=== PATIENT | female | born 1940 | race Caucasian/White ===

== ENCOUNTER 2018-09-11 19:29 | Inpatient (IN) ==
[2018-09-11] MEDS ORDERED: DILTIAZEM 25 MG/5 ML VIAL IV ONE (19:49)
[2018-09-11] MEDS ORDERED: ACETAMINOPHEN 325 MG TABLET PO ONE (19:50)
[2018-09-11] MEDS ORDERED: 0.9 % SODIUM CHLORIDE 1,000 ML IV SCH (20:00)
[2018-09-11 20:07] LABS: Basophils # (Auto) 0.1 K/mcL (0.0-0.3); Basophils % (Auto) 0.7 % (0.0-2.0); Eosinophils # (Auto) 0.1 K/mcL (0.0-0.7); Eosinophils % (Auto) 1.1 % (0.0-7.0); Granulocytes % (Auto) 76.5 % (38.0-78.0); Lymphocytes # (Auto) 1.2 K/mcL (1.5-4.8); Lymphocytes % (Auto) 14.4 % (15.5-49.0); Mean Cell Volume 88.1 fL (80.0-100.0); Mean Corpuscular HGB Conc 33.1 g/dL (31.0-36.0); Monocytes # (Auto) 0.6 K/mcL (0.1-0.9); Monocytes % (Auto) 7.3 % (1.0-12.0); Platelet Count 189 K/mcL (140-440); RBC 4.53 M/mcL (4.00-5.20); Red Cell Distribution Width 13.9 % (11.5-14.5)
[2018-09-11 20:26] LABS: ALT/SGPT 11 U/l (0-40); Albumin 3.9 gm/dL (3.2-5.2); Albumin/Globulin Ratio 1.3 (1.0-2.3); Alkaline Phosphatase 69 U/L (39-117); Blood Urea Nitrogen 17 mg/dl (8-23)
[2018-09-11] MEDS ORDERED: FUROSEMIDE 40 MG/4 ML VIAL IV ONE (20:39)
[2018-09-11] MEDS ORDERED: IBUPROFEN 600 MG TABLET PO ONE (20:48)
--- NOTE | 2018-09-11 20:52 | Emergency Department Note ---
SOB HPI - General Chief Complaint: Shortness of Breath/Dyspnea Stated Complaint: Shortness of breath Time Seen by Provider: 09/11/18 19:36 Source: patient Mode of arrival: ambulatory Limitations: no limitations - History of Present Illness 78-year-old female presents with shortness of breath. She was here the night before last with the same. States she really never got any better so she decided to come in [facility]. Has had labored breathing for the last couple of days minimum she states. Positive fever and chills. Has felt hot but has not taken her temperature. Does have a nonproductive cough. No nausea, vomiting, or diarrhea. Does have a history of A. fib and feels like her heart rate is fast. She also has a history of CHF and was given Lasix and potassium the other night when she was here. No sore throat or ear pain. No nausea, vomiting, or diarrhea. Is not on any home oxygen. No home treatments. Associated symptoms: Reports: fever, cough, orthopnea, palpitations. Denies: chest pain, pain with inspiration, lower extremity pain, diaphoresis, nausea/vomiting, syncope, abdominal pain, rash - Related Data Home Medications Medication Instructions Recorded Confirmed metoprolol tartrate 25 mg tablet 25 mg PO BID 07/01/15 09/11/18 aspirin 325 mg tablet See Rx Instructions PO QDAY 06/08/17 09/11/18 Previous Rx's Medication Instructions Recorded albuterol sulfate HFA 90 90 mcg INHALATION Q4H PRN #18 g 07/05/15 mcg/actuation aerosol inhaler nebulizer and compressor See Dose Instructions .ROUTE 02/24/16 .MEDSUPPLY #1 each ipratropium bromide 0.02 % 2.5 ml INHALATION Q6H PRN #150 ml 11/29/17 solution for inhalation Apixaban [Eliquis] 2.5 mg PO BID #60 tab 09/09/18 Diltiazem HCl [Diltiazem 24Hr Cd] 120 mg PO DAILY #30 cap.er.24h 09/09/18 Triamterene/Hydrochlorothiazid 1 each PO QDP PRN #30 tab 09/09/18 [Triamterene-Hctz 37.5-25 mg Tb] Allergies Allergy/AdvReac Type Severity Reaction Status Date / Time No Known Drug Allergies Allergy Verified 09/09/18 16:47 Review of Systems All systems ED: reviewed and negative except as stated. Past Medical History - Past Medical History [facility] Narrative: Medical History (Last Updated 09/09/18 @ 17:13 by Washington Trimble DO) COPD (chronic obstructive pulmonary disease) (Chronic) Osteoporosis (Chronic) Mitral valve regurgitation (Chronic) Menopausal state (Chronic) Hyperlipemia (Chronic) Colonic polyp (Chronic) CVA (cerebral vascular accident) (Chronic) Breast cancer (Chronic) Wrist fracture, closed (Resolved) Past Surgical History (Last Updated 09/09/18 @ 17:14 by Washington Trimble DO) S/P atrial septal defect closure (Chronic) History of modified radical mastectomy of left breast (Resolved) Hx of cardiac catheterization (Resolved) Hx of detached retina repair (Resolved) Medical history: Reports: atrial fibrillation, CHF. Denies: coronary artery disease, hypertension, myocardial infarction - Social History smoking status: Former smoker Alcohol use: Reports: None Drug use: Reports: none Physical Exam Limitations: no limitations General appearance: alert, other (Labored breathing in mild distress on arrival) Head: atraumatic, normocephalic, normal inspection Eye: Present: normal appearance. Absent: conjunctival injection ENT: normal exam, normal oropharynx, mucous membranes moist, TM's normal bilaterally, normal external ear exam Neck: Present: normal inspection, trachea midline. Absent: tenderness, lymphadenopathy Chest: Present: symmetric chest wall rise Respiratory: Present: respiratory distress (Mild), wheezes (Expiratory wheezes to the bases bilaterally and diminished at the bases bilaterally), accessory muscle use (Accessory muscle use and tachypnea on arrival). Absent: stridor Cardiovascular: Present: tachycardia, irregular rhythm, other (A. fib in the 120s 130s on arrival) Abdominal: Present: normal bowel sounds Neurological: Present: alert, oriented X3 Psychiatric: Present: normal affect, normal mood Skin: Present: warm, dry, intact, normal color Course Course Narrative: At [address] did speak with Dr[address] Lynne, the hospitalist who agrees to admit this patient. Vital Signs Temperature 99.1 F H 09/11/18 19:30 Pulse Rate 126 H 09/11/18 19:30 Blood Pressure 156/88 09/11/18 19:30 Pulse Oximetry (%) 94 09/11/18 19:30 Temperature 98.0 F 09/11/18 21:30 Pulse Rate 121 H 09/11/18 21:09 Respiratory Rate 30 H 09/11/18 21:09 Blood Pressure 107/59 09/11/18 21:01 Pulse Oximetry (%) 92 09/11/18 21:09 Shortness of Breath/Dyspnea - Lab Data Lab results reviewed: Yes I reviewed the patient's lab results. Result diagrams: 09/11/18 19:40 09/11/18 19:40 Lab Results 09/11/18 09/11/18 09/11/18 Range/Units 19:37 19:40 19:40 WBC 8.1 (4.5-11.0) K/mcL RBC 4.53 (4.00-5.20) M/mcL Hgb 13.2 (12.0-15.0) g/dL Hct 39.9 (36.0-48.0) % MCV 88.1 (80.0-100.0) fL MCH 29.2 (26.0-34.0) pg MCHC 33.1 (31.0-36.0) g/dL RDW 13.9 (11.5-14.5) % Plt Count 189 (140-440) K/mcL MPV 8.8 (7.4-10.4) fL Gran % 76.5 (38.0-78.0) % Lymph % (Auto) 14.4 L (15.5-49.0) % [place] % (Auto) 7.3 (1.0-12.0) % Eos % (Auto) 1.1 (0.0-7.0) % Baso % (Auto) 0.7 (0.0-2.0) % Gran # 6.2 (1.8-8.0) K/mcL Lymph # (Auto) 1.2 L (1.5-4.8) K/mcL [place] # (Auto) 0.6 (0.1-0.9) K/mcL Eos # (Auto) 0.1 (0.0-0.7) K/mcL Baso # (Auto) 0.1 (0.0-0.3) K/mcL VBG Lactic Acid (0.5-2.0) mmol/L Sodium 140 (133-145) mmol/L Potassium 4.4 (3.3-5.1) mmol/L Chloride 101 (96-108) mmol/L Carbon Dioxide 25 (22-30) mmol/L Anion Gap 14.0 (8-16) BUN 17 (8-23) mg/dl Creatinine 0.9 (0.6-1.1) mg/dl GFR Calculation 62 Glucose 135 H (70-105) mg/dL Calcium 9.2 (8.6-10.4) mg/dl Total Bilirubin 0.8 (0.0-1.0) mg/dL AST 25 (0-37) U/l ALT 11 (0-40) U/l Alkaline Phosphatase 69 (39-117) U/L NT-Pro-B Natriuret Pep 1913.0 H (0-450) pg/ml Total Protein 6.9 (5.9-8.4) gm/dL Albumin 3.9 (3.2-5.2) gm/dL Globulin 3.0 (2.2-3.7) gm/dL Albumin/Globulin Ratio 1.3 (1.0-2.3) 09/11/18 Range/Units 20:00 WBC (4.5-11.0) K/mcL RBC (4.00-5.20) M/mcL Hgb (12.0-15.0) g/dL Hct (36.0-48.0) % MCV (80.0-100.0) fL MCH (26.0-34.0) pg MCHC (31.0-36.0) g/dL RDW (11.5-14.5) % Plt Count (140-440) K/mcL MPV (7.4-10.4) fL Gran % (38.0-78.0) % Lymph % (Auto) (15.5-49.0) % [place] % (Auto) (1.0-12.0) % Eos % (Auto) (0.0-7.0) % Baso % (Auto) (0.0-2.0) % Gran # (1.8-8.0) K/mcL Lymph # (Auto) (1.5-4.8) K/mcL [place] # (Auto) (0.1-0.9) K/mcL Eos # (Auto) (0.0-0.7) K/mcL Baso # (Auto) (0.0-0.3) K/mcL VBG Lactic Acid 1.5 (0.5-2.0) mmol/L Sodium (133-145) mmol/L Potassium (3.3-5.1) mmol/L Chloride (96-108) mmol/L Carbon Dioxide (22-30) mmol/L Anion Gap (8-16) BUN (8-23) mg/dl Creatinine (0.6-1.1) mg/dl GFR Calculation Glucose (70-105) mg/dL Calcium (8.6-10.4) mg/dl Total Bilirubin (0.0-1.0) mg/dL AST (0-37) U/l ALT (0-40) U/l Alkaline Phosphatase (39-117) U/L NT-Pro-B Natriuret Pep (0-450) pg/ml Total Protein (5.9-8.4) gm/dL Albumin (3.2-5.2) gm/dL Globulin (2.2-3.7) gm/dL Albumin/Globulin Ratio (1.0-2.3) - Radiology Data Radiology results reviewed: Yes I reviewed the patient's radiology results. - EKG Data EKG attestation: Yes I reviewed and interpreted this EKG. Disposition Pt seen by AUTOMOTIVE DESIGN DRAFTER/PA only: No Clinical Impression: Pneumonia, Atrial fibrillation, SOB (shortness of breath) Disposition: Xfer As Inpt ([facility]) Condition: Fair Referrals: Jeff Byrd MD [Primary Care Provider] - Time of Disposition: 21:40
[2018-09-11] MEDS ORDERED: DILTIAZEM 125 MG in DEXTROSE 5% IN WATER 100 ML IV SCH (21:00)
[2018-09-11] MEDS ORDERED: LEVOFLOXACIN 500 MG/100 ML BAG IV ONE (21:36)
--- NOTE | 2018-09-11 22:27 | Internal Med History&Physical ---
Medical - H&P: HPI Patient information: Note initiated : 09/11/18 at 10:22 pm Service Date, if different from initiated Date: [] Patient: Varsha Barney a 78 y/o F admitted on for Shortness of breath. Chief Complaint: [] History of present illness: Ms. Barney is a 78 year old F with history of COPD, atrial fibrillation presents to the emergency room for evaluation of shortness of breath. The patient notes she has been short of breath for the last 1 week, she has found it is more difficult to carry out her usual activities. She is also had some intermittent palpitations. The patient was seen in the clinic on Sunday, was noted to be in A. fib RVR and possible CHF and therefore was sent to the em ergency room. The patient was treated in the emergency room, according to the patient 6 L of fluid removed, and she was given a new prescription of medications and asked to follow-up with the PCP. The next morning the patient was feeling somewhat better however her condition worsened again she became more short of breath even with minimal activity and she therefore presented back to the emergency room for further evaluation. The patient notes she had very mild burning when she pees, cough which is dry, fever that has been going on since today, fever associated with chills, the patient denies any nausea vomiting diarrhea constipation, admits to some easy bruising but no other acute complai nts or concerns. In the emergency room patient on presentation had a low-grade temperature but a T-max of 101.1, tachycardic heart rate in 110-130 blood pressure 107/59, respiratory rate 25-30, saturating 92% on room air. Chest x-ray shows cardiomegaly possible right basilar pneumonia versus atelect asis EKG shows atrial fibrillation with RVR incomplete RBBB LAFB nonspecific ST-T wave changes in the lateral leads Labs show normal WBC count at 8.1 hemoglobin 13.2 platelets 189 BNP 1913 which is an improvement over 2 days ago when it was 3179 sodium is 140 potassium 4.4 bicarbonate 25 creatinine 0.9 TSH done 2 days ago was normal lactic acid 1.5. ABG was done which shows pH of 7.47 PCO2 36 PO2 63 on room air On exam the patient also had wheezing, the patient for her A. fib was placed on a Cardizem drip, levofloxacin was given blood cultures were sent before antibiotics I presume, IV fluids was also given along with Lasix. Patient is being admitted to the hospital for further management Given that the patient has COPD exacerbation CHF exacerbation A. fib with RVR and fever I will admit the patient to PCU status All systems: reviewed and no additional remarkable complaints except as stated (As per HPI is negative) Medical - H&P: PMH Medical history: Medical History (Last Updated 09/09/18 @ 17:13 by Washington Trimble DO) COPD (chronic obstructive pulmonary disease) (Chronic) Osteoporosis (Chronic) Mitral valve regurgitation (Chronic) Menopausal state (Chronic) Hyperlipemia (Chronic) Colonic polyp (Chronic) CVA (cerebral vascular accident) (Chronic) Breast cancer (Chronic) Wrist fracture, closed (Resolved) Surgical history: Past Surgical History (Last Updated 09/09/18 @ 17:14 by Washington Trimble DO) S/P atrial septal defect closure (Chronic) History of modified radical mastectomy of left breast (Resolved) Hx of cardiac catheterization (Resolved) Hx of detached retina repair (Resolved) Pertinent family history: Family History mother Malignant neoplasm of breast father Essential hypertension Cerebrovascular accident (CVA) none listed Malignant neoplasm Neurological disorder Rheumatoid arthritis Medical - H&P: Meds Home Medications Medication Instructions Recorded Confirmed Type metoprolol tartrate 25 mg tablet 25 mg PO BID 07/01/15 09/11/18 History albuterol sulfate HFA 90 90 mcg INHALATION Q4H PRN #18 g 07/05/15 09/11/18 Rx mcg/actuation aerosol inhaler nebulizer and compressor See Dose Instructions .ROUTE 02/24/16 09/09/18 Rx .MEDSUPPLY #1 each aspirin 325 mg tablet See Rx Instructions PO QDAY 06/08/17 09/11/18 History ipratropium bromide 0.02 % 2.5 ml INHALATION Q6H PRN #150 ml 11/29/17 09/11/18 Rx solution for inhalation Apixaban [Eliquis] 2.5 mg PO BID #60 tab 09/09/18 09/11/18 Rx Diltiazem HCl [Diltiazem 24Hr Cd] 120 mg PO DAILY #30 cap.er.24h 09/09/18 09/11/18 Rx Triamterene/Hydrochlorothiazid 1 each PO QDP PRN #30 tab 09/09/18 09/11/18 Rx [Triamterene-Hctz 37.5-25 mg Tb] Allergies Allergy/AdvReac Type Severity Reaction Status Date / Time No Known Drug Allergies Allergy Verified 09/09/18 16:47 Medical - H&P: Exam - Constitutional Vitals: Temp Pulse Resp BP Pulse Ox 98.0 F 130 H 29 H 113/79 93 09/11/18 21:30 09/11/18 22:09 09/11/18 22:09 09/11/18 22:01 09/11/18 22:09 Exam: GENERAL: The patient is a well-developed, well-nourished in no apparent distress. Is alert and oriented x3. VITAL SIGNS: Reviewed and as noted elsewhere. HEENT: Head is normocephalic and atraumatic. Extraocular muscles are intact. Pupils are equal, round, and reactive to light. Nares appeared normal. Mouth appears any without lesions. Mucous membranes are moist. NECK: Normal to inspection, Supple, No lymphadenopathy or thyromegaly. LUNGS: Air entry equal on both sides, poor air entry, briana exp wheezing noted. Pt tachypenic, HEART: irregulr tachycardic rate, s1 and S2 heard, no Gallop, S3 or Rub Noted, systolic mitral mumur . ABDOMEN: Soft, nontender, and nondistended. Positive bowel sounds. No hepatosplenomegaly was noted. EXTREMITIES: No cyanosis, clubbing, rash, lesions, edema ++ present NEUROLOGIC: Cranial nerves II through XII are grossly intact. Motor and Sensory System Grossly Intact PSYCHIATRIC: Normal affect, Normal Mood. Appropriate Behavior. SKIN: No ulceration or wounds noted, No jaundice, No rash noted. Medical - H&P: Reslt - Labs CBC & Chem 7: 09/11/18 19:40 09/11/18 19:40 Labs: Short CBC 09/11/18 Range/Units 19:40 WBC 8.1 (4.5-11.0) K/mcL Hgb 13.2 (12.0-15.0) g/dL Hct 39.9 (36.0-48.0) % Plt Count 189 (140-440) K/mcL BMP 09/11/18 19:40 Sodium 140 Potassium 4.4 Chloride 101 Carbon Dioxide 25 BUN 17 Creatinine 0.9 Glucose 135 H Calcium 9.2 Liver Function 09/11/18 Range/Units 19:40 Total Bilirubin 0.8 (0.0-1.0) mg/dL AST 25 (0-37) U/l ALT 11 (0-40) U/l Alkaline Phosphatase 69 (39-117) U/L Albumin 3.9 (3.2-5.2) gm/dL Medical - H&P: A/P - Narrative A/P Narrative: A/P Atrial fibrillation with RVR Acute systolic congestive heart failure Viral fever Pneumonia Acute exacerbation of COPD History of breast cancer History of CVA Hyperlipidemia Plan Admit to PCU status Continue Cardizem GGT to control heart rate, Lasix 40 mg twice a day, monitor urine output IV levofloxacin for now Patient's chest x-ray is atelectasis versus pneumonia, patient does have fever but there is no white count, continue IV levofloxacin for now, await pro- calcitonin level, if blood cultures are negative will de-escalate antibiotics UA has been sent patient's recent urine culture has been negative Patient is on Eliquis 2.5 mg twice a day started day before yesterday continue same for now continue to hold aspirin Continue metoprolol and Cardizem for rate control Get an echocardiogram Resume home medications as appropriate Cardiac diet DNR CODE STATUS Social History - Social History marital status: education level: high school occupational status: retired occupation: retired car dryer - Tobacco smoking status: Former smoker - Alcohol alcohol intake frequency: holiday/special occasion only
[2018-09-11 22:56] LABS: Appearance,Urine CLEAR; Bacteria,Urine 0 /hpf (0); Bilirubin,Urine NEG (NEG); Color,Urine STRAW; Glucose,Urine (UA) NEGATIVE (NEG); Leukocyte Esterase,Urine 250 /uL (NEG); Mucus,Urine FEW /hpf (0); Protein,Urine NEG (NEG); Specific Gravity,Urine 1.006 (1.000-1.035); Urine Blood 0.03 mg/dL (<0.03); Urine Hyaline Cast 2 /lpf (0-2); Urine RBC 5 /hpf (0-1); Urine Squamous Epithelial Cell 1 /hpf (0-4); Urine WBC 21 /hpf (0-4); Urobilinogen,Urine NEG (NEG)
[2018-09-11] MEDS ORDERED: NALOXONE HCL 0.4 MG/ML VIAL IV PRN (23:14)
[2018-09-11] MEDS ORDERED: ONDANSETRON 4 MG/2 ML VIAL IV PRN (23:14)
[2018-09-11] MEDS ORDERED: methylPREDNISolone SOD SUCC 40 MG/ML VIAL IV ONE (23:14)
[2018-09-11] MEDS ORDERED: ACETAMINOPHEN 325 MG TABLET PO PRN (23:14)
[2018-09-11] MEDS ORDERED: methylPREDNISolone SOD SUCC 125 MG/2 ML VIAL ONE (23:30)
[2018-09-11] MEDS ORDERED: IPRATROPIUM/ALBUTEROL 3 ML AMPUL.NEB NEB ONE (23:41)
[2018-09-11] MEDS: IPRATROPIUM/ALBUTEROL 3 ML AMPUL.NEB NEB SCH (23:51)
[2018-09-12] MEDS: IPRATROPIUM/ALBUTEROL 3 ML AMPUL.NEB NEB SCH ×6 (04:26→22:40)
[2018-09-12] MEDS ORDERED: 0.9 % SODIUM CHLORIDE 10 ML SYRINGE IV SCH (06:00)
--- NOTE | 2018-09-12 06:22 | XRay Report ---
CLINICAL INFORMATION: dyspnea COMPARISON: 09/09/2018 FINDINGS: Moderate cardiomegaly is unchanged. Pulmonary vessels have returned to normal in caliber and interstitial edema has nearly resolved. A small infiltrate or atelectasis has progressed in the right base. Moderate underlying COPD changes noted. No effusions IMPRESSION: 1. Interval resolution in atypical CHF 2. Small infiltrate or atelectasis progressing in the right base 3. Moderate COPD Interpreted and Authenticated by: Jacobo Carpenter 09/12/18
[2018-09-12 07:06] LABS: Basophils # (Auto) 0 K/mcL (0.0-0.3); Basophils % (Auto) 0.2 % (0.0-2.0); Eosinophils # (Auto) 0 K/mcL (0.0-0.7); Eosinophils % (Auto) 0.1 % (0.0-7.0); Granulocytes % (Auto) 89.4 % (38.0-78.0); Lymphocytes # (Auto) 0.5 K/mcL (1.5-4.8); Lymphocytes % (Auto) 6.5 % (15.5-49.0); Mean Cell Volume 88.9 fL (80.0-100.0); Mean Corpuscular HGB Conc 33.5 g/dL (31.0-36.0); Monocytes # (Auto) 0.3 K/mcL (0.1-0.9); Monocytes % (Auto) 3.8 % (1.0-12.0); Platelet Count 177 K/mcL (140-440); RBC 4.27 M/mcL (4.00-5.20); Red Cell Distribution Width 14.1 % (11.5-14.5)
--- NOTE | 2018-09-12 07:41 | Emergency Department Note ---
ED Note Addendum Note Addendum: I discussed this case with the mid-level provider and agree with the assessment and plan.
[2018-09-12 07:47] LABS: ALT/SGPT 11 U/l (0-40); Albumin 3.7 gm/dL (3.2-5.2); Albumin/Globulin Ratio 1.2 (1.0-2.3); Alkaline Phosphatase 65 U/L (39-117); Bilirubin,Direct 0.2 mg/dL (0.0-0.3); Blood Urea Nitrogen 15 mg/dl (8-23); Gamma Glutamyl Transpeptidase 20 U/L (5-36); Uric Acid 5.9 mg/dL (2.5-8.0)
[2018-09-12] MEDS ORDERED: predniSONE 20 MG TABLET PO SCH (08:00)
[2018-09-12] MEDS ORDERED: FUROSEMIDE 40 MG/4 ML VIAL IV SCH (08:00)
[2018-09-12] MEDS ORDERED: DILTIAZEM 125 MG in DEXTROSE 5% IN WATER 100 ML IV SCH (09:00)
[2018-09-12] MEDS ORDERED: LINEZOLID 600 MG TABLET PO SCH (09:00)
[2018-09-12] MEDS ORDERED: DILTIAZEM 120 MG CAP.XL.24H PO SCH (09:00)
[2018-09-12] MEDS ORDERED: METOPROLOL TARTRATE 25 MG TABLET PO SCH ×2 (09:00→21:00)
[2018-09-12] MEDS ORDERED: APIXABAN 2.5 MG TABLET PO SCH (09:00)
[2018-09-12] MEDS ORDERED: FAMOTIDINE/PF 20 MG/2 ML VIAL IV SCH (09:00)
[2018-09-12] MEDS ORDERED: OSELTAMIVIR PHOSPHATE 75 MG CAPSULE PO SCH (09:00)
[2018-09-12] MEDS ORDERED: ACETAMINOPHEN 325 MG TABLET PO PRN (10:08)
[2018-09-12] MEDS ORDERED: NALOXONE HCL 0.4 MG/ML VIAL IV PRN (10:08)
[2018-09-12] MEDS ORDERED: ONDANSETRON 4 MG/2 ML VIAL IV PRN (10:08)
--- NOTE | 2018-09-12 13:16 | Internal Med Progress Note ---
Medical - PN: Subj Patient information: Note initiated : 09/12/18 at 1:13 pm Service Date, if different from initiated Date: [] Patient: Varsha Barney a 78 y/o F admitted on 09/11/18 for Shortness of breath. Chief Complaint: [] Interval history: Ms. Barney is a 78 year old F with history of COPD, atrial fibrillation presents to the emergency room for evaluation of shortness of breath. The patient notes she has been short of breath for the last 1 week, she has found it is more difficult to carry out her usual activities. She is also had some intermittent palpitations. The patient was seen in the clinic on Sunday, was noted to be in A. fib RVR and possible CHF and therefore was sent to the emerg ency room. The patient was treated in the emergency room, according to the patient 6 L of fluid removed, and she was given a new prescription of medications and asked to follow-up with the PCP. The next morning the patient was feeling somewhat better however her condition worsened again she became more short of breath even with minimal activity and she therefore presented back to the emergency room for further evaluation. The patient notes she had very mild burning when she pees, cough which is dry, fever that has been going on since today, fever associated with chills, the patient denies any nausea vomiting diarrhea constipation, admits to some easy bruising but no other acute complaints or concerns. In the emergency room patient on presentation had a low-grade temperature but a T-max of 101.1, tachycardic heart rate in 110-130 blood pressure 107/59, respiratory rate 25-30, saturating 92% on room air. Chest x-ray shows cardiomegaly possible right basilar pneumonia versus atelectasis EKG shows atrial fibrillation with RVR incomplete RBBB LAFB nonspecific ST-T wave changes in the lateral leads Labs show normal WBC count at 8.1 hemoglobin 13.2 platelets 189 BNP 1913 which is an improvement over 2 days ago when it was 3179 sodium is 140 potassium 4.4 bicarbonate 25 creatinine 0.9 TSH done 2 days ago was normal lactic acid 1.5. ABG was done which shows pH of 7.47 PCO2 36 PO2 63 on room air On exam the patient also had wheezing, the patient for her A. fib was placed on a Cardizem drip, levofloxacin was given blood cultures were sent before antibiotics I presume, IV fluids was also given along with Lasix. Patient is being admitted to the hospital for further management Given that the patient has COPD exacerbation CHF exacerbation A. fib with RVR and fever I will admit the patient to PCU status 09/12 patient seen examined, no acute overnight events Patient tested positive for influenza Cardizem drip has been off since yesterday Patient appears hemodynamically stable. Patient is responding well to diuresis Echo pending patient wishes to go home Transfer to telemetry status Pertinent ROS: Denies headache, dizziness Denies chest pain, palpitations Cough and shortness of breath improving Denies abdominal pain, nausea or vomiting. - Constitutional Vitals: Vital Signs Temp Pulse Resp BP Pulse Ox 99.7 F H 60 22 94/57 94 09/12/18 11:00 09/12/18 10:02 09/12/18 11:00 09/12/18 11:00 09/12/18 11:00 Period Temp Pulse Resp BP Sys/Wallace Pulse Ox Last 24 Hr 98.0 F-101.1 F 60-146 18-36 74-156/53-94 92-97 Intake and Output 09/11/18 09/12/18 09/12/18 21:59 05:59 13:59 Intake Total 802 / 1007 205 / 1007 353 / 353 Output Total 1100 / 1100 450 / 450 Balance 802 / -93 -895 / -93 -97 / -97 Weight 144 lb 143 lb Intake & Output: Intake & Output 09/11/18 09/12/18 09/12/18 21:59 05:59 13:59 Intake Total 802 / 1007 205 / 1007 353 / 353 Output Total 1100 / 1100 450 / 450 Balance 802 / -93 -895 / -93 -97 / -97 Weight 144 lb 143 lb Intake: IV 802 / 947 145 / 947 53 / 53 Sodium Chloride 0.9% 1,000 ml @ 800 / 800 150 mls/hr IV .Q6H40M [facility] Rx#: [id number] Cardizem 125 mg In Dextrose 5% 2 / 47 45 / 47 in Water 100 ml @ 5 MG/HR 5 mls /hr IV Q12H [facility] Rx#:[id number] Oral 60 / 60 300 / 300 Output: Void Amount 1100 / 1100 450 / 450 Other: Meal Breakfast Percent of Meal Consumed 100% Feeding Ability Independent Urine Appearance Clear Clear Urine Color Bright Yellow Light Olive Urine Odor Normal Normal Exam: Constitutional; Afebrile, cooperative, alert, not in distress. Eyes- No icterus, , No periorbital swelling Ears- Ext ear normal, hearing normal to conversation. Neck- Midline trachea, supple Respiratory system: Improved air entry on both sides, improved crackles bilaterally CVS- Rate rhythm irregular , S1,S2 heard, no gallop, no rub. Abdomen- Soft nontender abdomen, no organomegaly, no tenderness, no guarding or rigidity, BIBLE READER- AOOx3, moving all extremities, no gross focal deficit noted. Medical - PN: Obj Da - Labs CBC & Chem 7: 09/12/18 03:35 09/12/18 03:35 Labs: Abnormal Lab Results 09/12/18 09/12/18 09/11/18 03:35 03:35 22:15 Gran % 89.4 H Lymph % (Auto) 6.5 L Lymph # (Auto) 0.5 L Glucose 140 H Phosphorus 2.6 L Total Bilirubin 1.1 H Lactate Dehydrogenase 255 H NT-Pro-B Natriuret Pep Urine Occult Blood 0.03 A Ur Leukocyte Esterase 250 A Urine RBC 5 H Urine WBC 21 H 09/11/18 09/11/18 09/11/18 19:40 19:40 19:37 Gran % Lymph % (Auto) 14.4 L Lymph # (Auto) 1.2 L Glucose 135 H Phosphorus Total Bilirubin Lactate Dehydrogenase NT-Pro-B Natriuret Pep 1913.0 H Urine Occult Blood Ur Leukocyte Esterase Urine RBC Urine WBC Meds: Medications Acetaminophen (Tylenol) 650 mg PO Q4-6HP PRN PRN Reason: PAIN/FEVER > 101 Albuterol/Ipratropium (Duoneb) 3 ml NEB Q4HRT [facility] Last Admin: 09/12/18 11:52 Dose: Not Given Documented by: Apixaban (Eliquis) 2.5 mg PO BID [facility] Diltiazem HCl (Cardizem Cd) 120 mg PO DAILY [facility] Famotidine (Pepcid) 20 mg IV Q12 [facility] Furosemide (Lasix) 40 mg IV BIDD [facility] Diltiazem HCl 125 mg/ Dextrose 125 mls @ 5 mls/hr IV Q12HP PRN; Protocol PRN Reason: TITRATE TO KEEP HR <100,SBP>90 Levofloxacin (Levaquin) 750 mg in 150 mls @ 100 mls/hr IV DAILY [facility] Linezolid (Zyvox) 600 mg PO Q12 [facility] Metoprolol Tartrate (Lopressor) 25 mg PO BID [facility] Naloxone HCl (Narcan) 0.1 mg IV Q2MIN PRN PRN Reason: Opiate Reversal Ondansetron HCl (Zofran) 4 mg IV Q4-6HP PRN PRN Reason: Nausea And Vomiting Oseltamivir Phosphate (Tamiflu) 75 mg PO BID [facility] Prednisone (Prednisone) 40 mg PO [facility] Stop: 09/15/18 07:59 Sodium Chloride (Saline Flush) 10 ml IV Q8 [facility] Medical - PN: A/P - Time Spent With Patient Total time spent is greater than 50% in coordination of care (as documented) at patient's floor/unit and/or counseling patient: - Narrative A/P Narrative: A/P Atrial fibrillation with RVR Acute systolic congestive heart failure Influenza type a Pneumonia Acute exacerbation of COPD History of breast cancer History of CVA Hyperlipidemia Plan Transfer to telemetry status Of [facility] [place] GGT continue to monitor heart rate oral medications for rate control resume, Lasix 40 mg twice a day, monitor urine output IV levofloxacin for now, Zyvox added given influenza is positive, Will discontinue antibiotics at 48 hours if cultures remain negative MRSA screen is negative UA has been sent patient's recent urine culture has been negative Patient is on Eliquis 2.5 mg twice a day started day before yesterday continue same for now continue to hold aspirin Await echo Patient started on Tamiflu Cardiac diet DNR CODE STATUS Medical - PN: Qual - VTE Deep Vein Thrombosis/Pulmonary Embolism Present on Admission: No
[2018-09-12] MEDS ORDERED: LEVOFLOXACIN 750 MG/150 ML BAG IV SCH (14:00)
[2018-09-12] MEDS: LEVOFLOXACIN 750 MG/150 ML BAG IV SCH (14:14)
[2018-09-12] MEDS: FUROSEMIDE 40 MG/4 ML VIAL IV SCH (15:24)
[2018-09-12] MEDS: 0.9 % SODIUM CHLORIDE 10 ML SYRINGE IV SCH ×2 (15:24→20:18)
[2018-09-12] MEDS: METOPROLOL TARTRATE 5 MG/5 ML VIAL IV SCH ×3 (15:59→16:50)
[2018-09-12] MEDS: LINEZOLID 600 MG TABLET PO SCH (20:17)
[2018-09-12] MEDS: APIXABAN 2.5 MG TABLET PO SCH (20:17)
[2018-09-12] MEDS: OSELTAMIVIR PHOSPHATE 75 MG CAPSULE PO SCH (20:17)
[2018-09-12] MEDS: FAMOTIDINE/PF 20 MG/2 ML VIAL IV SCH (20:17)
[2018-09-12] MEDS: METOPROLOL TARTRATE 25 MG TABLET PO SCH (20:17)
[2018-09-12] MEDS ORDERED: DILTIAZEM 125 MG in DEXTROSE 5% IN WATER 100 ML IV PRN (21:00)
[2018-09-13] MEDS: IPRATROPIUM/ALBUTEROL 3 ML AMPUL.NEB NEB SCH ×3 (03:45→10:19)
[2018-09-13] MEDS: 0.9 % SODIUM CHLORIDE 10 ML SYRINGE IV SCH ×2 (05:25→08:21)
[2018-09-13 05:58] LABS: Basophils # (Auto) 0 K/mcL (0.0-0.3); Basophils % (Auto) 0.2 % (0.0-2.0); Eosinophils # (Auto) 0 K/mcL (0.0-0.7); Eosinophils % (Auto) 0 % (0.0-7.0); Granulocytes % (Auto) 65.4 % (38.0-78.0); Lymphocytes # (Auto) 0.8 K/mcL (1.5-4.8); Lymphocytes % (Auto) 15.6 % (15.5-49.0); Mean Cell Volume 88.4 fL (80.0-100.0); Mean Corpuscular HGB Conc 33.7 g/dL (31.0-36.0); Monocytes % (Auto) 18.8 % (1.0-12.0); Platelet Count 172 K/mcL (140-440); RBC 3.98 M/mcL (4.00-5.20); Red Cell Distribution Width 13.9 % (11.5-14.5)
[2018-09-13 06:30] LABS: ALT/SGPT 11 U/l (0-40); Albumin 3.5 gm/dL (3.2-5.2); Albumin/Globulin Ratio 1.3 (1.0-2.3); Alkaline Phosphatase 56 U/L (39-117); Bilirubin,Direct < 0.2 mg/dL (0.0-0.3); Blood Urea Nitrogen 23 mg/dl (8-23); Gamma Glutamyl Transpeptidase 17 U/L (5-36)
[2018-09-13] MEDS ORDERED: predniSONE 20 MG TABLET PO SCH (08:00)
[2018-09-13] MEDS: OSELTAMIVIR PHOSPHATE 75 MG CAPSULE PO SCH (08:21)
[2018-09-13] MEDS: FAMOTIDINE/PF 20 MG/2 ML VIAL IV SCH (08:21)
[2018-09-13] MEDS: METOPROLOL TARTRATE 25 MG TABLET PO SCH (08:21)
[2018-09-13] MEDS: FUROSEMIDE 40 MG/4 ML VIAL IV SCH (08:21)
[2018-09-13] MEDS: LINEZOLID 600 MG TABLET PO SCH (08:21)
[2018-09-13] MEDS: APIXABAN 2.5 MG TABLET PO SCH (08:22)
[2018-09-13] MEDS: LEVOFLOXACIN 750 MG/150 ML BAG IV SCH (08:23)
[2018-09-13] MEDS ORDERED: DILTIAZEM 120 MG CAP.XL.24H PO SCH (09:00)
--- NOTE | 2018-09-13 11:47 | Discharge Summary ---
Medical - DS: Prov Patient information: Note initiated : 09/13/18 at 11:44 am Service Date, if different from initiated Date: [] Patient: Varsha Barney 78 y/o F admitted on 09/11/18 for Shortness of breath. Chief Complaint: [] Date of admission: 09/11/18 23:07 Discharge date: 09/13/18 Primary care physician: Jeff Byrd Consults: 09/11/18 Consult to Physician [CONS] Stat Comment: Consulting Provider: Alexa Lynne Reason For Exam: Physician to Consult Discharging clinician: Alexa Lynne Medical - DS: Meds - Discharge Medications Prescriptions: Furosemide [Lasix] 20 mg PO DAILY #30 tablet Levofloxacin [Levaquin] 750 mg PO DAILY #3 tablet Oseltamivir Phosphate [Tamiflu] 75 mg PO BID #10 capsule predniSONE [Prednisone] 40 mg PO [facility] #4 tablet Active and Home Medications: Home Medications metoprolol tartrate 25 mg tablet 25 mg PO BID 07/01/15 [History Confirmed 09/12/18 Last Taken 09/11/18 08:00] albuterol sulfate HFA 90 mcg/actuation aerosol inhaler 90 mcg INHALATION Q4H PRN #18 g 07/05/15 [Rx Confirmed 09/12/18 Last Taken 09/11/18 08:00] nebulizer and compressor See Dose Instructions .ROUTE .MEDSUPPLY #1 each 02/24/16 [Rx Confirmed 09/09/18 Last Taken Unknown] aspirin 325 mg tablet See Rx Instructions PO QDAY 06/08/17 [History Confirmed 09/12/18 Last Taken 09/11/18 08:00] ipratropium bromide 0.02 % solution for inhalation 2.5 ml INHALATION Q6H PRN #150 ml 11/29/17 [Rx Confirmed 09/12/18 Last Taken 09/11/18 08:00] Apixaban [Eliquis] 2.5 mg PO BID #60 tab 09/09/18 [Rx Confirmed 09/12/18 Last Taken 09/11/18 08:00] Diltiazem HCl [Diltiazem 24Hr Cd] 120 mg PO DAILY #30 cap.er.24h 09/09/18 [Rx Confirmed 09/12/18 Last Taken 09/11/18 08:00] Triamterene/Hydrochlorothiazid [Triamterene-Hctz 37.5-25 mg Tb] 1 each PO QDP PRN #30 tab 09/09/18 [Rx Confirmed 09/11/18 Last Taken Unknown] Medical - DS: Hosp Hospital course: Ms. Barney is a 78 year old F with history of COPD, atrial fibrillation presents to the emergency room for evaluation of shortness of breath. The patient notes she has been short of breath for the last 1 week, she has found it is more difficult to carry out her usual activities. She is also had some intermittent palpitations. The patient was seen in the clinic on Sunday, was noted to be in A. fib RVR and possible CHF and therefore was sent to the emergency room. The patient was treated in the emergency room, according to the patient 6 L of fluid removed, and she was given a new prescription of medications and asked to follow-up with the PCP. The next morning the patient was feeling somewhat better however her condition worsened again she became more short of breath even with minimal activity and she therefore presented back to the emergency room for further evaluation. The patient notes she had very mild burning when she pees, cough which is dry, fever that has been going on since t cosmo, fever associated with chills, the patient denies any nausea vomiting diarrhea constipation, admits to some easy bruising but no other acute complaints or concerns. In the emergency room patient on presentation had a low-grade temperature but a T-max of 101.1, tachycardic heart rate in 110-130 blood pressure 107/59, respiratory rate 25-30, saturating 92% on room air. Chest x-ray shows cardiomegaly possible right basilar pneumonia versus atelectasis EKG shows atrial fibrillation with RVR incomplete RBBB LAFB nonspecific ST-T wave changes in the lateral leads Labs show normal WBC count at 8.1 hemoglobin 13.2 platelets 189 BNP 1913 which is an improvement over 2 days ago when it was 3179 sodium is 140 potassium 4.4 bicarbonate 25 creatinine 0.9 TSH done 2 days ago was normal lactic acid 1.5. ABG was done which shows pH of 7.47 PCO2 36 PO2 63 on room air On exam the patient also had wheezing, the patient for her A. fib was placed on a Cardizem drip, levofloxacin was given blood cultures were sent before antibiotics I presume, IV fluids was also given along with Lasix. Patient is being admitted to the hospital for further management Given that the patient has COPD exacerbation CHF exacerbation A. fib with RVR and fever I will admit the patient to PCU status 09/12 patient seen examined, no acute overnight events Patient tested positive for influenza Cardizem drip has been off since yesterday Patient appears hemodynamically stable. Patient is responding well to diuresis Echo pending patient wishes to go home Transfer to telemetry status 09/13 Pt seen examined, rate controlled with oral meds, echo reveiwed, decreased lv function, severe mitral regurg, mild to moderate pulm htn, mild pericardial effusion [pt needs to have mitral valve replacement, pt already has made appointment with Dr Bogdan Valenzuela, junior sales assistant in [facility]. pt feels much better and anxious to be discharged In Summary Influenzae pneumonia- Treat with tamiflu, and levofloxacin. Patient responded well to treatment, MRSA screen was neg, Afib with RVR, - Rate initially needed Cardizem drip however patient was later transitioned to oral Cardizem and oral metoprolol. At the time of discharge she will be on Cardizem 180 mg once a day and metoprolol 50 mg twice a day. [Dose of metoprolol has been increased from 25 twice a day to 50 twice a day at this visit] The patient does not want to be on anticoagulation however is taking Eliquis at this time we will continue same Mitral regurgitation-congestive heart failure-start the patient on p.o. Lasix 20 mg once a day, she responded well to IV Lasix she is also on hydrochlorothiazide triamterene diuretic. Patient will need Chemsttry panel in 1-2 weeks to be followed by PCP Acute exacerbation of COPD-treated with bronchodilators and steroids, patient responded well to treatment not wheezing at the time of discharge. Will complete the course of prednisone for total of 5 days and levofloxacin for 5 days Discharge diagnosis: influenzae, chf, afib with rvr, copd exacerbation - Time Spent with Patient Total time spent providing and/or coordinating discharge services: Greater than 30 minutes Medical - DS: Exam - Constitutional Vitals: Vital Signs Temp Pulse Resp BP BP Pulse Ox 09/13/18 11:12 100 H 20 97 09/13/18 11:00 98 F 20 114/83 114/83 95 09/13/18 10:20 100 H 20 09/13/18 07:36 106 H 20 09/13/18 07:00 98.8 F 24 H 155/77 115/77 96 09/13/18 03:52 99.0 F 83 117/80 100 09/13/18 00:18 98.7 F 85 110/74 94 09/12/18 21:05 100.4 F H 09/12/18 20:20 100.8 F H 09/12/18 20:00 20 96 09/12/18 19:35 100.5 F H 20 114/60 96 09/12/18 19:10 120 H 14 09/12/18 17:00 113/64 09/12/18 16:55 119/86 09/12/18 16:26 119/68 09/12/18 16:23 129/76 09/12/18 16:14 106/69 09/12/18 16:08 112/67 09/12/18 16:04 123/72 09/12/18 15:32 99.8 F H 93 H 24 H 115/60 93 09/12/18 15:18 89 12 94 09/12/18 15:14 107 H 12 Intake and Output 09/12/18 09/13/18 09/13/18 21:59 05:59 13:59 Intake Total 510 / 1163 300 / 1163 360 / 360 Output Total 775 / 1775 375 / 1775 900 / 900 Balance -265 / -612 -75 / -612 -540 / -540 Intake: IV 150 / 203 Oral 360 / 960 300 / 960 360 / 360 Output: Void Amount 775 / 1775 375 / 1775 900 / 900 # of times incontinent of urine 0 / 0 Other: Meal Dinner Percent of Meal Consumed 100% Feeding Ability Independent Urine Appearance Clear Clear Clear Urine Color Bright Yellow Pale Bright Yellow Urine Odor Normal Normal Normal # Voids 4 Weight 143 lb Additional comments: Constitutional; Afebrile, cooperative, alert, not in distress. Eyes- No icterus, , No periorbital swelling Ears- Ext ear normal, hearing normal to conversation. Neck- Midline trachea, supple Respiratory system: Air Entry equal on both sides, No crackles or wheezing, no rhonchi. CVS- Rate rhythm irregular, S1,S2 heard, no gallop, no rub. Abdomen- Soft nontender abdomen, no organomegaly, no tenderness, no guarding or rigidity, [employer]- AOOx3, moving all extremities, no gross focal deficit noted. Medical - DS: Data Labs on day of discharge: Labs from last 24 hours 09/13/18 09/13/18 03:50 03:50 WBC 5.1 RBC 3.98 L Hgb 11.9 L Hct 35.2 L MCV 88.4 MCH 29.8 MCHC 33.7 RDW 13.9 Plt Count 172 MPV 8.9 Gran % 65.4 Lymph % (Auto) 15.6 [place] % (Auto) 18.8 H Eos % (Auto) 0 Baso % (Auto) 0.2 Gran # 3.3 Lymph # (Auto) 0.8 L [place] # (Auto) 1.0 H Eos # (Auto) 0 Baso # (Auto) 0 Sodium 136 Potassium 4.0 Chloride 99 Carbon Dioxide 23 Anion Gap 14.0 BUN 23 Creatinine 1.0 GFR Calculation 54 Glucose 137 H Uric Acid 7.0 Calcium 8.7 Phosphorus 3.6 Magnesium 2.0 Total Bilirubin 0.5 Direct Bilirubin < 0.2 GGT 17 AST 24 ALT 11 Alkaline Phosphatase 56 Lactate Dehydrogenase 225 Total Protein 6.2 Albumin 3.5 Globulin 2.7 Albumin/Globulin Ratio 1.3 Triglycerides 39 Preliminary micro results at discharge 09/11/18 22:15 Urine Culture - Preliminary Urine - Clean Void Mid-Stream 09/11/18 20:00 Blood Culture - Preliminary Blood 09/11/18 20:07 Blood Culture - Preliminary Blood Medical - DS: A/P - Patient/Caregiver Discharge Instructions Activity: increase activity as tolerated Diet: Low Sodium (2gm), Cardiac Additional Instructions: You were admitted to the hospital with a diagnosis of influenza pneumonia, atrial fibrillation with rapid rate, congestive heart failure, and COPD exacerbation. Influenza pneumonia-please take Tamiflu and levofloxacin as prescribed. Atrial fibrillation-your heart rate was elevated, please take Cardizem as prescribed before, I am increasing the dose of metoprolol from 25 mg to 50 mg. Congestive heart failure-I am starting you on a water pill called furosemide, 20 mg, take 1 pill once a day. Please complete the course of prednisone, take this medication with food Please make sure your PCP checks your blood (chemistry panel) in 1 week Follow up with PCP in 1 week Go to the Er if worsening symptoms, c hest pain,shortness of breath or any other acute concern. - Follow up Plan Follow up with: Jeff Byrd MD [Primary Care Provider] - 09/20/18 10:30 am (Continue with your previously scheduled appointment.) Disposition: Home, Self-Care Prognosis: Fair Rehab Potential: Fair I certify that the patient requires SNF services: No Overall status at discharge: patient is progressing back to baseline Medical - DS: Qual - VTE Deep Vein Thrombosis/Pulmonary Embolism Present on Admission: No
== END 2018-09-13 13:50 | disposition home or self-care (01) | DRG 193 ==
LOC: ED 19:29 → ICU 23:05
PROVIDERS: ADMIT Internal Medicine; ATTEND Internal Medicine

== ENCOUNTER 2018-12-30 16:14 | Observation (INO) ==
[2018-12-30] MEDS ORDERED: FUROSEMIDE 40 MG/4 ML VIAL IV ONE (16:32)
[2018-12-30 17:17] LABS: Basophils # (Auto) 0 K/mcL (0.0-0.3); Basophils % (Auto) 0.4 % (0.0-2.0); Eosinophils # (Auto) 0.2 K/mcL (0.0-0.7); Eosinophils % (Auto) 3.5 % (0.0-7.0); Granulocytes % (Auto) 63.2 % (38.0-78.0); Lymphocytes # (Auto) 1.1 K/mcL (1.5-4.8); Lymphocytes % (Auto) 20.6 % (15.5-49.0); Mean Cell Volume 88.8 fL (80.0-100.0); Mean Corpuscular HGB Conc 32.8 g/dL (31.0-36.0); Monocytes # (Auto) 0.7 K/mcL (0.1-0.9); Monocytes % (Auto) 12.3 % (1.0-12.0); Platelet Count 191 K/mcL (140-440); RBC 4.31 M/mcL (4.00-5.20); Red Cell Distribution Width 15.1 % (11.5-14.5)
--- NOTE | 2018-12-30 17:26 | XRay Report ---
INDICATION: Congestive heart failure. Dyspnea. TECHNIQUE: PA and lateral upright chest x-ray COMPARISON: Previous chest x-rays dated 09/11/2018, 09/09/2018, 03/12/2018 FINDINGS:Increased AP diameter of the chest and hyperexpansion consistent with COPD. There is cardiomegaly, unchanged. Pulmonary vascularity is prominent. There is peribronchial thickening and probable interstitial pulmonary edema. Findings are slightly worse than on 09/11/2018. No alveolar infiltrates. There is no pleural fluid. Mayra and mediastinum are negative. No pathologic adenopathy. IMPRESSION: 1. Findings consistent with COPD 2. Cardiomegaly and probable interstitial pulmonary edema, worse since 09/11/2018 Interpreted and Authenticated by: Jacobo Mendiola 12/30/18
[2018-12-30 17:42] LABS: ALT/SGPT 22 U/l (0-40); Albumin 4.2 gm/dL (3.2-5.2); Albumin/Globulin Ratio 1.4 (1.0-2.3); Alkaline Phosphatase 80 U/L (39-117); Blood Urea Nitrogen 22 mg/dl (8-23)
--- NOTE | 2018-12-30 18:03 | Emergency Department Note ---
SOB HPI - General Chief Complaint: Shortness of Breath/Dyspnea Stated Complaint: Shortness of breath Time Seen by Provider: 12/30/18 16:19 Source: patient Mode of arrival: ambulatory Limitations: no limitations - History of Present Illness 78-year-old female comes in for 1 week history of worsening shortness of breath . She has a history of heart failure and has recently gained about 3 pounds her legs are edematous. Some wheezing. She is on triamterene hydrochlorothiazide along with some furosemide. No fever nausea vomiting or diarrhea. She is not on home oxygen She has a history of paroxysmal atrial fibrillation for which she is anticoagulated. Additionally she has a history of severe mitral valve regurgitation for which she has been evaluated in [facility]. Ultimately they decided not to replace or repair that valve-this was earlier this year - Related Data Home Medications Medication Instructions Recorded Confirmed Amiodarone HCl [Pacerone] 100 mg PO BID 12/30/18 12/30/18 Furosemide [Lasix] 20 mg PO DAILY 12/30/18 12/30/18 Metoprolol Tartrate [Lopressor] 12.5 mg PO BID 12/30/18 12/30/18 Potassium Chloride [K-Tab ER] 20 meq PO Q2D 12/30/18 12/30/18 Triamterene/Hydrochlorothiazid 1 each PO DAILY 12/30/18 12/30/18 [Triamterene-Hctz 37.5-25 mg Tb] Previous Rx's Medication Instructions Recorded apixaban 2.5 mg tablet 2.5 mg PO BID #180 tab 11/19/18 ipratropium bromide 0.02 % 2.5 ml INHALATION Q6H PRN #150 ml 11/19/18 solution for inhalation Allergies Allergy/AdvReac Type Severity Reaction Status Date / Time No Known Drug Allergies Allergy Verified 09/20/18 10:30 Review of Systems All systems ED: reviewed and negative except as stated. Past Medical History - Past Medical History Attestation: Yes: The following information was validated with the patient. [facility] Narrative: Family History mother Malignant neoplasm of breast father Essential hypertension Cerebrovascular accident (CVA) none listed Malignant neoplasm Neurological disorder Rheumatoid arthritis Medical History (Last Updated 09/09/18 @ 17:13 by Washington Trimble DO) COPD (chronic obstructive pulmonary disease) (Chronic) Osteoporosis (Chronic) Mitral valve regurgitation (Chronic) Menopausal state (Chronic) Hyperlipemia (Chronic) Colonic polyp (Chronic) CVA (cerebral vascular accident) (Chronic) Breast cancer (Chronic) Wrist fracture, closed (Resolved) Past Surgical History (Last Updated 09/09/18 @ 17:14 by Washington Trimble DO) S/P atrial septal defect closure (Chronic) History of modified radical mastectomy of left breast (Resolved) Hx of cardiac catheterization (Resolved) Hx of detached retina repair (Resolved) Medical history: Reports: atrial fibrillation, CHF, COPD, CVA, hyperlipidemia, hypertension, osteoporosis. Denies: CAD (coronary artery disease), myocardial infarction Surgical history ED: Reports: angioplasty/stent, orthopedic, other (Wrist fracture), other (ASD closure, radical mastectomy, retinal detachment surgery) - Social History smoking status: Former smoker Alcohol use: Reports: None Drug use: Reports: none Physical Exam No acute distress resting. Normocephalic atraumatic. Conjunctive are clear sclerae nonicteric. No nasal discharge or congestion. Oropharynx pink and moist. Neck is supple without lymphadenopathy or thyromegaly. Heart is regular rate and rhythm no murmur appreciated. Lungs clear to auscultation bilaterally but she does have end expiratory wheezes. She is hypoxic with exertion-even getting up to the bedside commode causing her sats drop below 90%. Abdomen is soft nontender nondistended. She does have significant pedal edema +1-2 which is increasing she reports. She is alert oriented able to give me reasonable history Limitations: no limitations Course Vital Signs Temperature 97.7 F 12/30/18 16:19 Pulse Rate 48 L 12/30/18 16:19 Respiratory Rate 24 H 12/30/18 16:19 Blood Pressure 148/80 12/30/18 16:19 Pulse Oximetry (%) 97 12/30/18 16:19 Temperature 98.8 F 12/31/18 07:50 Pulse Rate 55 L 12/31/18 07:50 Respiratory Rate 18 12/31/18 07:50 Blood Pressure 107/55 12/31/18 07:50 Pulse Oximetry (%) 95 12/31/18 07:50 Shortness of Breath/Dyspnea - Lab Data Lab results reviewed: Yes I reviewed the patient's lab results. Result diagrams: 12/31/18 04:00 12/31/18 04:00 Lab Results 12/30/18 12/30/18 12/30/18 Range/Units 16:42 16:42 16:42 WBC 5.6 (4.5-11.0) K/mcL RBC 4.31 (4.00-5.20) M/mcL Hgb 12.6 (12.0-15.0) g/dL Hct 38.3 (36.0-48.0) % MCV 88.8 (80.0-100.0) fL MCH 29.2 (26.0-34.0) pg MCHC 32.8 (31.0-36.0) g/dL RDW 15.1 H (11.5-14.5) % Plt Count 191 (140-440) K/mcL MPV 8.8 (7.4-10.4) fL Gran % 63.2 (38.0-78.0) % Lymph % (Auto) 20.6 (15.5-49.0) % [place] % (Auto) 12.3 H (1.0-12.0) % Eos % (Auto) 3.5 (0.0-7.0) % Baso % (Auto) 0.4 (0.0-2.0) % Gran # 3.5 (1.8-8.0) K/mcL Lymph # (Auto) 1.1 L (1.5-4.8) K/mcL [place] # (Auto) 0.7 (0.1-0.9) K/mcL Eos # (Auto) 0.2 (0.0-0.7) K/mcL Baso # (Auto) 0 (0.0-0.3) K/mcL VBG Lactic Acid 1.8 (0.5-2.0) mmol/L Sodium 138 (133-145) mmol/L Potassium 4.2 (3.3-5.1) mmol/L Chloride 99 (96-108) mmol/L Carbon Dioxide 27 (22-30) mmol/L Anion Gap 12.0 (8-16) BUN 22 (8-23) mg/dl Creatinine 1.2 H (0.6-1.1) mg/dl GFR Calculation 44 Glucose 118 H (70-105) mg/dL Calcium 9.1 (8.6-10.4) mg/dl Magnesium 2.1 (1.6-2.5) mg/dL Total Bilirubin 0.3 (0.0-1.0) mg/dL AST 30 (0-37) U/l ALT 22 (0-40) U/l Alkaline Phosphatase 80 (39-117) U/L Troponin T (0-0.03) ng/ml NT-Pro-B Natriuret Pep 1626.0 H (0-450) pg/ml Total Protein 7.3 (5.9-8.4) gm/dL Albumin 4.2 (3.2-5.2) gm/dL Globulin 3.1 (2.2-3.7) gm/dL Albumin/Globulin Ratio 1.4 (1.0-2.3) Procalcitonin (<0.10) ng/mL Urine Color Urine Appearance Urine pH (5.0-9.0) Ur Specific [place] (1.000-1.035) Urine Protein (NEG) mg/dL Urine Glucose (UA) (NEG) mg/dL Urine Ketones (NEG) mg/dL Urine Occult Blood (<0.03) mg/dL Urine Nitrate (NEG) Urine Bilirubin (NEG) mg/dL Urine Urobilinogen (NEG) mg/dL Ur Leukocyte Esterase (NEG) /uL Urine RBC (0-1) /hpf Urine WBC (0-4) /hpf Ur Squamous Epith Cells (0-4) /hpf Urine Bacteria (0) /hpf Hyaline Casts (0-2) /lpf Ur Culture Indicated? 12/30/18 12/30/18 12/30/18 Range/Units 16:42 16:42 17:44 WBC (4.5-11.0) K/mcL RBC (4.00-5.20) M/mcL Hgb (12.0-15.0) g/dL Hct (36.0-48.0) % MCV (80.0-100.0) fL MCH (26.0-34.0) pg MCHC (31.0-36.0) g/dL RDW (11.5-14.5) % Plt Count (140-440) K/mcL MPV (7.4-10.4) fL Gran % (38.0-78.0) % Lymph % (Auto) (15.5-49.0) % [place] % (Auto) (1.0-12.0) % Eos % (Auto) (0.0-7.0) % Baso % (Auto) (0.0-2.0) % Gran # (1.8-8.0) K/mcL Lymph # (Auto) (1.5-4.8) K/mcL [place] # (Auto) (0.1-0.9) K/mcL Eos # (Auto) (0.0-0.7) K/mcL Baso # (Auto) (0.0-0.3) K/mcL VBG Lactic Acid (0.5-2.0) mmol/L Sodium (133-145) mmol/L Potassium (3.3-5.1) mmol/L Chloride (96-108) mmol/L Carbon Dioxide (22-30) mmol/L Anion Gap (8-16) BUN (8-23) mg/dl Creatinine (0.6-1.1) mg/dl GFR Calculation Glucose (70-105) mg/dL Calcium (8.6-10.4) mg/dl Magnesium (1.6-2.5) mg/dL Total Bilirubin (0.0-1.0) mg/dL AST (0-37) U/l ALT (0-40) U/l Alkaline Phosphatase (39-117) U/L Troponin T < 0.01 (0-0.03) ng/ml NT-Pro-B Natriuret Pep (0-450) pg/ml Total Protein (5.9-8.4) gm/dL Albumin (3.2-5.2) gm/dL Globulin (2.2-3.7) gm/dL Albumin/Globulin Ratio (1.0-2.3) Procalcitonin 0.16 (<0.10) ng/mL Urine Color Straw Urine Appearance Clear Urine pH 7.0 (5.0-9.0) Ur Specific [place] 1.008 (1.000-1.035) Urine Protein Neg (NEG) mg/dL Urine Glucose (UA) Negative (NEG) mg/dL Urine Ketones Neg (NEG) mg/dL Urine Occult Blood Neg (<0.03) mg/dL Urine Nitrate Neg (NEG) Urine Bilirubin Neg (NEG) mg/dL Urine Urobilinogen Neg (NEG) mg/dL Ur Leukocyte Esterase Neg (NEG) /uL Urine RBC 1 (0-1) /hpf Urine WBC < 1 (0-4) /hpf Ur Squamous Epith Cells 0 (0-4) /hpf Urine Bacteria 0 (0) /hpf Hyaline Casts 1 (0-2) /lpf Ur Culture Indicated? Yes - Radiology Data Radiology results reviewed: Yes I reviewed the patient's radiology results. Chest x-ray shows stigmata of COPD with concern for possible infiltrate right lower lobe. Pulmonary vascular congestion consistent with CHF - EKG Data EKG attestation: Yes I reviewed and interpreted this EKG. EKG results narrative: EKG shows a left anterior fascicular block with sinus bradycardia a rate of 47 left ventricular hypertrophy. There is some secondary repolarization abnormality. Disposition Pt seen by SERVICES ACCOUNT MANAGER/PA only: No Clinical Impression: Acute systolic CHF (congestive heart failure), NYHA class 3 Summary: After initial evaluation work-up ordered. Start Lasix for likely CHF exacerbation She had significant fatigue and could not move around much without becoming hypoxic. Urinating well on Lasix. She remained bradycardic Discussed scenario with Dr. Lynne, our hospitalist who agreed to accept the patient for further care and evaluation Disposition: Xfer As Outpt/Obs ([facility]) Condition: Fair
[2018-12-30] MEDS ORDERED: NALOXONE HCL 0.4 MG/ML VIAL IV PRN (18:29)
[2018-12-30] MEDS ORDERED: ONDANSETRON 4 MG/2 ML VIAL IV PRN (18:29)
[2018-12-30] MEDS: IPRATROPIUM/ALBUTEROL 3 ML AMPUL.NEB NEB SCH ×2 (18:48→22:53)
[2018-12-30 19:04] LABS: Appearance,Urine CLEAR; Bacteria,Urine 0 /hpf (0); Bilirubin,Urine NEG (NEG); Color,Urine STRAW; Glucose,Urine (UA) NEGATIVE (NEG); Leukocyte Esterase,Urine NEG /uL (NEG); Protein,Urine NEG (NEG); Specific Gravity,Urine 1.008 (1.000-1.035); Urine Blood NEG mg/dL (<0.03); Urine Hyaline Cast 1 /lpf (0-2); Urine RBC 1 /hpf (0-1); Urine Squamous Epithelial Cell 0 /hpf (0-4); Urine WBC < 1 /hpf (0-4); Urobilinogen,Urine NEG (NEG)
--- NOTE | 2018-12-30 21:47 | Internal Med History&Physical ---
Medical - H&P: [facility] Patient information: Note initiated : 12/30/18 at 9:44 pm Service Date, if different from initiated Date: [] Patient: Varsha Barney a 78 y/o F admitted on 12/30/18 for Shortness of breath. Chief Complaint: [] History of present illness: Ms. Barney is a 78 year old F with history of heart failure, severe mitral regurgitation atrial fibrillation and pulmonary hypertension presents to the hospital today for evaluation of shortness of breath. The patient notes that she has been short of breath with increased edema in the lower extremities going on for the last 1 week, however has significant worsening of her condition over the last day also. She has had worsening edema in the lower extremities. Shortness of breath is worse when she is moving around better when at rest. She has chronic cough with yellowish sputum but not significantly worse compared to her baseline. She denies any fever chills chest pain headache dizziness or syncope episodes. She had seen a specialist in [place] for evaluation for possible mitral valve replacement and was told that it is not needed, she is now in sinus rhythm. On presentation to the emergency, patient was afebrile hemodynamically stable based on the vitals available to me saturating more than 90% on room air. Labs are unremarkable, BNP 1626 troponin negative chest x-ray shows interstitial edema and chronic COPD EKG shows sinus bradycardia left axis right bundle branch block and possible LAFB. Patient was given Lasix, the ED provider told me that the patient is hypoxic on ambulation and therefore is being admitted to the hospital for observation for CHF On talking with the patient she takes the Lasix on a daily basis and takes her triamterene and hydrochlorothiazide on an as-needed basis. Review of systems: Denies headache, dizziness Denies chest pain, palpitations Shortness of breath with exertion present, chronic cough present Denies abdominal pain, nausea or vomiting. Medical - H&P: [facility] Medical history: Medical History (Last Updated 09/09/18 @ 17:13 by Washington Trimble DO) COPD (chronic obstructive pulmonary disease) (Chronic) Osteoporosis (Chronic) Mitral valve regurgitation (Chronic) Menopausal state (Chronic) Hyperlipemia (Chronic) Colonic polyp (Chronic) CVA (cerebral vascular accident) (Chronic) Breast cancer (Chronic) Wrist fracture, closed (Resolved) Surgical history: Past Surgical History (Last Updated 09/09/18 @ 17:14 by Washington Trimble DO) S/P atrial septal defect closure (Chronic) History of modified radical mastectomy of left breast (Resolved) Hx of cardiac catheterization (Resolved) Hx of detached retina repair (Resolved) Pertinent family history: Family History mother Malignant neoplasm of breast father Essential hypertension Cerebrovascular accident (CVA) none listed Malignant neoplasm Neurological disorder Rheumatoid arthritis Medical - H&P: Meds Home Medications Medication Instructions Recorded Confirmed Type apixaban 2.5 mg tablet 2.5 mg PO BID #180 tab 11/19/18 12/30/18 Rx ipratropium bromide 0.02 % 2.5 ml INHALATION Q6H PRN #150 ml 11/19/18 12/30/18 Rx solution for inhalation Amiodarone HCl [Pacerone] 100 mg PO BID 12/30/18 12/30/18 History Furosemide [Lasix] 20 mg PO DAILY 12/30/18 12/30/18 History Metoprolol Tartrate [Lopressor] 12.5 mg PO BID 12/30/18 12/30/18 History Potassium Chloride [K-Tab ER] 20 meq PO Q2D 12/30/18 12/30/18 History Triamterene/Hydrochlorothiazid 1 each PO DAILY 12/30/18 12/30/18 History [Triamterene-Hctz 37.5-25 mg Tb] Allergies Allergy/AdvReac Type Severity Reaction Status Date / Time No Known Drug Allergies Allergy Verified 09/20/18 10:30 Medical - H&P: Exam - Constitutional Vitals: Temp Pulse Resp BP Pulse Ox 98.6 F 61 20 146/62 99 12/30/18 19:37 12/30/18 19:22 12/30/18 19:37 12/30/18 19:37 12/30/18 19:37 Exam: Constitutional; Afebrile, cooperative, alert, not in distress. Eyes- No icterus, , No periorbital swelling Ears- Ext ear normal, hearing normal to conversation. Neck- Midline trachea, supple Respiratory system: Air Entry equal on both sides, No crackles or wheezing, no rhonchi. CVS- Rate rhythm regular, S1,S2 heard, no gallop, no rub. mitral region systolic murmur 3/6 Abdomen- Soft nontender abdomen, no organomegaly, no tenderness, no guarding or rigidity, WASTE OIL PUMPER- AOOx3, moving all extremities, no gross focal deficit noted. Extremities -briana pitting edema +++ Medical - H&P: Reslt - Labs CBC & Chem 7: 12/30/18 16:42 12/30/18 16:42 Labs: Short CBC 12/30/18 Range/Units 16:42 WBC 5.6 (4.5-11.0) K/mcL Hgb 12.6 (12.0-15.0) g/dL Hct 38.3 (36.0-48.0) % Plt Count 191 (140-440) K/mcL BMP 12/30/18 16:42 Sodium 138 Potassium 4.2 Chloride 99 Carbon Dioxide 27 BUN 22 Creatinine 1.2 H Glucose 118 H Calcium 9.1 Cardiac Enzymes 12/30/18 Range/Units 16:42 Troponin T < 0.01 (0-0.03) ng/ml Liver Function 12/30/18 Range/Units 16:42 Total Bilirubin 0.3 (0.0-1.0) mg/dL AST 30 (0-37) U/l ALT 22 (0-40) U/l Alkaline Phosphatase 80 (39-117) U/L Albumin 4.2 (3.2-5.2) gm/dL Urine 12/30/18 Range/Units 17:44 Urine Color Straw Urine Appearance Clear Urine pH 7.0 (5.0-9.0) Ur Specific [place] 1.008 (1.000-1.035) Urine Protein Neg (NEG) mg/dL Urine Glucose (UA) Negative (NEG) mg/dL Medical - H&P: A/P - Narrative A/P Narrative: A/P Acute diastolic HF exacerbation Pulmonary Hypertension Mitral regurgitation Atrial fibrilation, now in sinus chr anticoagulation CODP Plan Observe on tele IV lasix, plan to switch triamteren -hctz to daily rather than on as needed basis, and to double up on the dose of lasix if weight gain noted. Resume home medications once verified DVT on eliquis DNR code status Cardiac diet. Medical - H&P: Qual - Stroke Symptom Onset Unknown: No - VTE Deep Vein Thrombosis/Pulmonary Embolism Present on Admission: No Social History - Social History marital status: education level: high school occupational status: retired occupation: retired manager wealth management - Tobacco smoking status: Former smoker - Alcohol alcohol intake frequency: holiday/special occasion only
[2018-12-30] MEDS: 0.9 % SODIUM CHLORIDE 10 ML SYRINGE IV SCH (22:37)
[2018-12-31] MEDS: IPRATROPIUM/ALBUTEROL 3 ML AMPUL.NEB NEB SCH ×2 (04:46→07:21)
[2018-12-31] MEDS: 0.9 % SODIUM CHLORIDE 10 ML SYRINGE IV SCH (05:06)
[2018-12-31 06:23] LABS: Basophils # (Auto) 0 K/mcL (0.0-0.3); Basophils % (Auto) 0.5 % (0.0-2.0); Eosinophils # (Auto) 0.2 K/mcL (0.0-0.7); Eosinophils % (Auto) 2.9 % (0.0-7.0); Granulocytes % (Auto) 61.7 % (38.0-78.0); Lymphocytes # (Auto) 1.2 K/mcL (1.5-4.8); Mean Cell Volume 89.3 fL (80.0-100.0); Mean Corpuscular HGB Conc 32.9 g/dL (31.0-36.0); Monocytes # (Auto) 0.7 K/mcL (0.1-0.9); Monocytes % (Auto) 12.9 % (1.0-12.0); Platelet Count 167 K/mcL (140-440); RBC 3.88 M/mcL (4.00-5.20)
[2018-12-31 06:39] LABS: ALT/SGPT 17 U/l (0-40); Albumin 3.3 gm/dL (3.2-5.2); Albumin/Globulin Ratio 1.3 (1.0-2.3); Alkaline Phosphatase 63 U/L (39-117); Bilirubin,Direct < 0.2 mg/dL (0.0-0.3); Blood Urea Nitrogen 20 mg/dl (8-23); Gamma Glutamyl Transpeptidase 34 U/L (5-36); Uric Acid 7.8 mg/dL (2.5-8.0)
[2018-12-31] MEDS ORDERED: POTASSIUM CHLORIDE 20 MEQ PACKET PO ONE (07:35)
[2018-12-31] MEDS ORDERED: FUROSEMIDE 40 MG/4 ML VIAL IV SCH (08:00)
[2018-12-31] MEDS ORDERED: POTASSIUM CHLORIDE 20 MEQ TABLET PO SCH (08:00)
[2018-12-31] MEDS ORDERED: AMIODARONE HCL 200 MG TABLET PO SCH (08:00)
[2018-12-31] MEDS ORDERED: TRIAMTERENE/HYDROCHLOROTHIAZID 1 CAP CAPSULE PO SCH (09:00)
[2018-12-31] MEDS ORDERED: APIXABAN 2.5 MG TABLET PO SCH (09:00)
[2018-12-31] MEDS ORDERED: METOPROLOL TARTRATE 25 MG TABLET PO SCH (09:00)
--- NOTE | 2018-12-31 09:26 | Discharge Summary ---
Medical - DS: Prov Patient information: Note initiated : 12/31/18 at 9:22 am Service Date, if different from initiated Date: [] Patient: Varsha Barney 78 y/o F admitted on 12/30/18 for Shortness of breath. Chief Complaint: [] Date of admission: 12/30/18 18:27 Discharge date: 12/31/18 Primary care physician: Jeff Byrd Consults: 12/30/18 18:08 Consult to Physician [CONS] Stat Comment: Consulting Provider: Alexa Lynne Reason For Exam: Physician to Consult Discharging clinician: Alexa Lynne Medical - DS: Meds - Discharge Medications Active and Home Medications: Home Medications apixaban 2.5 mg tablet 2.5 mg PO BID #180 tab 11/19/18 [Rx Confirmed 12/30/18 Last Taken Unknown] ipratropium bromide 0.02 % solution for inhalation 2.5 ml INHALATION Q6H PRN #150 ml 11/19/18 [Rx Confirmed 12/30/18 Last Taken Unknown] Amiodarone HCl [Pacerone] 100 mg PO BID 12/30/18 [History Confirmed 12/30/18 Last Taken Unknown] Furosemide [Lasix] 20 mg PO DAILY 12/30/18 [History Confirmed 12/30/18 Last Taken Unknown] Metoprolol Tartrate [Lopressor] 12.5 mg PO BID 12/30/18 [History Confirmed 12/30/18 Last Taken Unknown] Potassium Chloride [K-Tab ER] 20 meq PO Q2D 12/30/18 [History Confirmed 12/30/18 Last Taken Unknown] Triamterene/Hydrochlorothiazid [Triamterene-Hctz 37.5-25 mg Tb] 1 each PO DAILY 12/30/18 [History Confirmed 12/30/18 Last Taken Unknown] Medical - DS: Hosp Hospital course: MMs. Barney is a 78 year old F with history of heart failure, severe mitral regurgitation atrial fibrillation and pulmonary hypertension presents to the hospital today for evaluation of shortness of breath. The patient notes that she has been short of breath with increased edema in the lower extremities going on for the last 1 week, however has significant worsening of her condition over the last day also. She has had worsening edema in the lower extremities. Shortness of breath is worse when she is moving around better when at rest. She has chronic cough with yellowish sputum but not significantly worse compared to her baseline. She denies any fever chills chest pain headache dizziness or syncope episodes. She had seen a specialist in [place] for evaluation for possible mitral valve replacement and was told that it is not needed, she is now in sinus rhythm. On presentation to the emergency, patient was afebrile hemodynamically stable based on the vitals available to me saturating more than 90% on room air. Labs are unremarkable, BNP 1626 troponin negative chest x-ray shows interstitial edema and chronic COPD EKG shows sinus bradycardia left axis right bundle branch block and possible LAFB. Patient was given Lasix, the ED provider told me that the patient is hypoxic on ambulation and therefore is being admitted to the hospital for observation for CHF On talking with the patient she takes the Lasix on a daily basis and takes her triamterene and hydrochlorothiazide on an as-needed basis. 12/31 Patient seen examined, sitting comfortably in chair, no new complaints or concerns. Neg 1850 ml since yesterday, will get another dose today, She feels much better, was able to walk down the hallway without any issues, some sob at the end of her walk Stable for discharge. Will change her triamterene -hctz to daily, rather than as needed. She will c ontinue with her lasix regime. Discharge diagnosis: chf exacerbation - Time Spent with Patient Total time spent providing and/or coordinating discharge services: Less than 30 minutes Medical - DS: Exam - Constitutional Vitals: Vital Signs Temp Pulse Pulse Resp BP BP Pulse Ox 12/31/18 08:00 95 12/31/18 07:50 98.8 F 55 L 18 107/55 95 12/31/18 07:28 57 L 16 12/31/18 07:22 95 12/31/18 04:07 97.7 F 18 116/53 94 12/31/18 00:27 98.1 F 18 119/47 94 12/30/18 23:18 66 18 95 12/30/18 22:55 68 18 12/30/18 19:37 98.6 F 20 146/62 99 12/30/18 19:22 61 20 12/30/18 18:30 97.7 F 47 L 21 134/64 93 12/30/18 18:23 47 L 21 134/64 93 12/30/18 18:15 18 98 12/30/18 17:43 64 17 97 12/30/18 17:19 50 L 17 150/65 96 12/30/18 17:11 85 17 150/65 98 12/30/18 16:46 25 L 21 136/64 97 12/30/18 16:32 46 L 19 147/67 98 12/30/18 16:28 45 L 23 H 148/80 98 12/30/18 16:19 97.7 F 48 L 24 H 148/80 97 Intake and Output 12/30/18 12/31/18 12/31/18 21:59 05:59 13:59 Intake Total 500 1220 Output Total 1650 800 450 Balance -1650 -300 770 Intake: Oral 500 1220 Output: Void Amount 1650 800 450 Other: Meal Breakfast Percent of Meal Consumed 100% Urine Appearance Clear Clear Clear Urine Color Pale Pale Straw Urine Odor Normal Normal Normal Weight 143 lb 8 oz Additional comments: Constitutional; Afebrile, cooperative, alert, not in distress. Respiratory system: Air Entry equal on both sides, No crackles or wheezing, no rhonchi. CVS- Rate rhythm regular, S1,S2 heard, no gallop, no rub. Abdomen- Soft nontender abdomen, no organomegaly, no tenderness, no guarding or rigidity, SUBEDITOR- AOOx3, moving all extremities, no gross focal deficit noted. Medical - DS: Data Labs on day of discharge: Labs from last 24 hours 12/31/18 12/31/18 12/30/18 04:00 04:00 17:44 WBC 5.3 RBC 3.88 L Hgb 11.4 L Hct 34.7 L MCV 89.3 MCH 29.4 MCHC 32.9 RDW 15.0 H Plt Count 167 MPV 8.9 Gran % 61.7 Lymph % (Auto) 22.0 [place] % (Auto) 12.9 H Eos % (Auto) 2.9 Baso % (Auto) 0.5 Gran # 3.2 Lymph # (Auto) 1.2 L [place] # (Auto) 0.7 Eos # (Auto) 0.2 Baso # (Auto) 0 VBG Lactic Acid Sodium 138 Potassium 3.5 Chloride 98 Carbon Dioxide 27 Anion Gap 13.0 BUN 20 Creatinine 1.2 H GFR Calculation 44 Glucose 92 Uric Acid 7.8 Calcium 8.5 L Phosphorus 3.6 Magnesium 1.9 Total Bilirubin 0.4 Direct Bilirubin < 0.2 GGT 34 AST 25 ALT 17 Alkaline Phosphatase 63 Lactate Dehydrogenase 221 Troponin T NT-Pro-B Natriuret Pep Total Protein 5.9 Albumin 3.3 Globulin 2.6 Albumin/Globulin Ratio 1.3 Triglycerides 69 Procalcitonin Urine Color Straw Urine Appearance Clear Urine pH 7.0 Ur Specific [place] 1.008 Urine Protein Neg Urine Glucose (UA) Negative Urine Ketones Neg Urine Occult Blood Neg Urine Nitrate Neg Urine Bilirubin Neg Urine Urobilinogen Neg Ur Leukocyte Esterase Neg Urine RBC 1 Urine WBC < 1 Ur Squamous Epith Cells 0 Urine Bacteria 0 Hyaline Casts 1 Ur Culture Indicated? Yes 12/30/18 12/30/18 12/30/18 16:42 16:42 16:42 WBC RBC Hgb Hct MCV MCH MCHC RDW Plt Count MPV Gran % Lymph % (Auto) [place] % (Auto) Eos % (Auto) Baso % (Auto) Gran # Lymph # (Auto) [place] # (Auto) Eos # (Auto) Baso # (Auto) VBG Lactic Acid 1.8 Sodium Potassium Chloride Carbon Dioxide Anion Gap BUN Creatinine GFR Calculation Glucose Uric Acid Calcium Phosphorus Magnesium Total Bilirubin Direct Bilirubin GGT AST ALT Alkaline Phosphatase Lactate Dehydrogenase Troponin T < 0.01 NT-Pro-B Natriuret Pep Total Protein Albumin Globulin Albumin/Globulin Ratio Triglycerides Procalcitonin 0.16 Urine Color Urine Appearance Urine pH Ur Specific [place] Urine Protein Urine Glucose (UA) Urine Ketones Urine Occult Blood Urine Nitrate Urine Bilirubin Urine Urobilinogen Ur Leukocyte Esterase Urine RBC Urine WBC Ur Squamous Epith Cells Urine Bacteria Hyaline Casts Ur Culture Indicated? 12/30/18 12/30/18 16:42 16:42 WBC 5.6 RBC 4.31 Hgb 12.6 Hct 38.3 MCV 88.8 MCH 29.2 MCHC 32.8 RDW 15.1 H Plt Count 191 MPV 8.8 Gran % 63.2 Lymph % (Auto) 20.6 [place] % (Auto) 12.3 H Eos % (Auto) 3.5 Baso % (Auto) 0.4 Gran # 3.5 Lymph # (Auto) 1.1 L [place] # (Auto) 0.7 Eos # (Auto) 0.2 Baso # (Auto) 0 VBG Lactic Acid Sodium 138 Potassium 4.2 Chloride 99 Carbon Dioxide 27 Anion Gap 12.0 BUN 22 Creatinine 1.2 H GFR Calculation 44 Glucose 118 H Uric Acid Calcium 9.1 Phosphorus Magnesium 2.1 Total Bilirubin 0.3 Direct Bilirubin GGT AST 30 ALT 22 Alkaline Phosphatase 80 Lactate Dehydrogenase Troponin T NT-Pro-B Natriuret Pep 1626.0 H Total Protein 7.3 Albumin 4.2 Globulin 3.1 Albumin/Globulin Ratio 1.4 Triglycerides Procalcitonin Urine Color Urine Appearance Urine pH Ur Specific [place] Urine Protein Urine Glucose (UA) Urine Ketones Urine Occult Blood Urine Nitrate Urine Bilirubin Urine Urobilinogen Ur Leukocyte Esterase Urine RBC Urine WBC Ur Squamous Epith Cells Urine Bacteria Hyaline Casts Ur Culture Indicated? Medical - DS: A/P - Patient/Caregiver Discharge Instructions Activity: increase activity as tolerated Diet: Cardiac Additional Instructions: Please take your medications as prescribed Take triamterene-hctz daily rather than on as needed basis. Take lasix as precribed, watch weight daily, If gaining >1 lb in 1 day or > 5 lbs in 1 week, pt to take an extra dose of furosemide 20mg for 3-5 days to see if this helps her weight. Follow up with PCP in 1 week - Follow up Plan Follow up with: Jeff Byrd MD [Primary Care Provider] - 01/07/19 1:45 pm (Please check in at 1:30 pm.) Disposition: Home, Self-Care Prognosis: Fair Rehab Potential: Fair I certify that the patient requires SNF services: No Overall status at discharge: patient is progressing back to baseline Medical - DS: Qual - VTE Deep Vein Thrombosis/Pulmonary Embolism Present on Admission: No
== END 2018-12-31 10:20 | disposition home or self-care (01) ==
LOC: ED 16:14 → ICU 16:14
PROVIDERS: ADMIT Internal Medicine; ATTEND Internal Medicine